=== PATIENT | female | born 1965 | race Caucasian/White ===

== ENCOUNTER 2017-11-14 11:49 | Inpatient (IN) ==
--- NOTE | 2017-11-14 12:07 | History & Physical Report ---
Date of Encounter: 11/14/17 Time of Encounter: 12:06 24 Hour HP Update - Instructions Instructions: If the History and Physical is less than 30 days old and was completed prior to A.M. admission and or procedure and has NOT been updated on calendar day of procedure please complete this update prior to performing procedure. - Update Patient reports changes in Medical Condition: No Changes in examination, assessment, or condition: No Changes in Medication: No Preop tests/diagnostics Reviewed: Yes Surgery Remains Indicated: Yes Consent for Planned Operative Procedure(s) Verified: Yes - Pre-Operative Checklist Preoperative Checklist Indicated: Yes Prophylactic Antibiotic Ordered: Yes Home Medications Include Beta Mukesh: No
[2017-11-14] MEDS ORDERED: cefOXitin 2,000 MG in Water for inj. (sterile) 20 ML 20 ML IVP ONE (12:14)
[2017-11-14] MEDS ORDERED: Ringers Solution, Lactated 1,000 ML IVC SCH (12:15)
[2017-11-14] MEDS ORDERED: Famotidine 20 MG/2 ML VIAL IVP ONE (12:20)
[2017-11-14] MEDS ORDERED: Scopolamine Patch 1.5 MG PATCH.TD72 TD ONE (12:20)
--- NOTE | 2017-11-14 12:24 | Anesthesia Evaluation PreOp ---
Date of Encounter: 11/14/17 Time of Encounter: 12:20 - Past History Planned Operation: Robotic Colon Resection Cardiac History: Hyperlipidemia Pulmonary History: Denies Any Significant HX ORTHOPHOTOGRAPHY TECHNICIAN History: Denies Any Significant HX Other Medical History: GERD, Other (Obese) Anesthesia History: No Prior Anesthetic Complications : No Test: Negative Alcohol Use: occasionally Drug use: none Medications and Allergies Lansoprazole [Prevacid] 30 mg PO BID 07/26/16 [History] Vitamin E Acetate [Vitamin E] 400 unit PO DAILY 10/24/16 [History] Tamoxifen Citrate 20 mg PO DAILY #90 tab 01/26/17 [Rx] Atorvastatin [Lipitor] 20 mg PO HS 10/15/17 [History] Meclizine [Antivert] 12.5 mg PO TID 10/15/17 [History] Venlafaxine HCl [Effexor Xr] 75 mg PO DAILY 10/15/17 [History] Amitriptyline HCl 75 mg PO HS #30 tablet 10/29/17 [Rx] 3 Allergy/AdvReac Type Severity Reaction Status Date / Time adhesive Allergy Rash Verified 06/18/17 13:41 - Meds/Allergy Pre-op Review Medications Reviewed: Yes Allergies Reviewed: Yes Beta Blockers on Current Med List: No Anesthesia Results - Labs Laboratory Tests 10/01/17 10/01/17 08:09 08:09 Hgb 13.1 Hct 40.2 Plt Count 294 Sodium 141 Potassium 4.1 BUN 11 Creatinine 1.05 Anesthesia Exam O2 Sat Height 1.63 m Height 1.63 m Weight 94.347 kg Weight 94.347 kg O2 Sat by Pulse Oximetry 95 Vital Signs Temp Pulse Resp BP Pulse Ox 98.2 F 98 18 115/71 95 11/14/17 12:07 11/14/17 12:07 11/14/17 12:07 11/14/17 12:07 11/14/17 12:07 Height: 5'4 Weight: 208 lbs NPO (# of Hours): MN Pain Scale: 0 - HEENT Pupil (Motor): Pupils equal, EOMI Mallampati: II Teeth: Normal Oral Opening: Greater than 3 - ORTHOPHOTOGRAPHY TECHNICIAN LOC: Oriented ORTHOPHOTOGRAPHY TECHNICIAN Motor: Normal RUE, Normal LUE, Normal RLE, Normal LLE, Normal Face ORTHOPHOTOGRAPHY TECHNICIAN Sensory: Normal: RUE, LUE, RLE, LLE, Face - Cardiac Rhythm: Regular Murmur: None JVD: No Carotid Bruit: No - Pulmonary Breath Sounds: bilateral Clear Respiratory Effort: Symmetrical Anesthesia Assess/Plan ASA Score: 2 Modified [place] Scale for Level of Consciousness: Cooperative, oriented, and tranquil Anesthetic Plan: General Monitoring Plan: Standard Monitors Recovery Plan: PACU (Discussed GA, possible TAP Block for rescue if open procedure, agrees to proceed)
[2017-11-14] MEDS ORDERED: *HR* Midazolam HCl 2 MG/2 ML VIAL ONE (15:02)
[2017-11-14] MEDS ORDERED: *HR* FentaNYL (PF) 100 MCG/2 ML VIAL ONE ×2 (15:02→15:03)
[2017-11-14] MEDS ORDERED: *HR* PHENYLEPHRINE 1,000 MCG/10 ML SYRINGE IVP ONE (15:02)
[2017-11-14] MEDS ORDERED: *HR* Propofol 200 MG/20 ML VIAL IVP ONE (15:02)
[2017-11-14] MEDS ORDERED: *HR* Succinylcholine 200 MG/10 ML VIAL IVP ONE (15:02)
[2017-11-14] MEDS ORDERED: *HR* Rocuronium Bromide 50 MG/5 ML VIAL ONE (15:02)
[2017-11-14] MEDS ORDERED: Lidocaine -MPF 2% 2 ML VIAL ONE (15:02)
[2017-11-14] MEDS ORDERED: Ondansetron 4 MG/2 ML VIAL IVP PRN ×2 (15:56→17:43)
[2017-11-14] MEDS ORDERED: *HR* HYDROmorphone 2 MG TABLET PO PRN (15:56)
[2017-11-14] MEDS ORDERED: *HR* Morphine 2 MG/ML SYRINGE IVP PRN (15:56)
[2017-11-14] MEDS ORDERED: *HR* OxyCODONE Immed Rel 5 MG TABLET PO PRN (15:56)
[2017-11-14] MEDS ORDERED: Neostigmine Methylsulfate 3 MG/3 ML SYRINGE ONE (16:12)
[2017-11-14] MEDS ORDERED: Ketorolac 30 MG/ML VIAL ONE (16:14)
--- NOTE | 2017-11-14 16:22 | Operative Note ---
Date of procedure: 11/14/17 Pre-op diagnosis: Unresectable hepatic flexure polyp Post-op diagnosis: same Procedure: Robotic right colon resection with stapled anastomosis Anesthesia: KANDICEA Surgeon: Jhonny Alarcon Was there an miller head assistant wet process present: Yes Shredded Filler Cutter Operator: Chasity Manuel Estimated blood loss (cc): 5 Specimen: Right colon resection Condition: stable Disposition: same day Procedure in Detail: After informed consent, the patient was taken the operating room placed in the supine position. After adequate sedation and anesthesia the abdomen was prepped and draped. [address] the umbilicus and a Verres needle was inserted into the abdomen. A pneumoperitoneum was created. 3 individual 8 mm cannulas were placed along with a 13 mm cannula. Once in place the E-Blinki XI robot was brought over the patient's right hip and positioned. The ports were connected the robot. Attention was replaced. Small bowel was swept to the left lateral position. The cecum and ileum were grasped and the vascular pedicle was identified. A window was created. The duodenum was readily identified and kept out of harm's way. The vascular pedicle was taken with a vessel sealer. The remainder of the colon was dissected free from the retroperitoneum. Once the transverse mesocolon had been divided to the level of the transverse colon it was stapled with a robotic stapler. The same was performed for the terminal ileum. Once that was completed the remainder of the lateral attachments were taken down with a vessel sealer. Colon was parked over the patient's right abdomen. The terminal ileum was then placed next to the transverse colon. 2 enterotomies were created and the colon and the small bowel and a 45 mm stapler was fired down both limbs. The common enterotomy was closed with 2-0 silk suture 2. Once completed the ports were removed and the pneumoperitoneum was evacuated. A small midline incision was made and the specimen was retrieved through a wound protection bag. Once finished the midline was closed with a looped PDS suture and the 13 mm cannula was closed with a 0 Vicryl. Melanie were placed in the skin.
--- NOTE | 2017-11-14 16:54 | Anesthesia Evaluation Post Op ---
Date of Encounter: 11/14/17 Time of Encounter: 17:00 - Vital Signs Vital Signs: Vital Signs/O2 Sat/Glucose, Most Current Temp Pulse Resp BP Pulse Ox 11/14/17 16:47 93 12 136/81 95 11/14/17 16:37 78 10 117/81 97 11/14/17 16:27 97.6 F 84 12 140/79 95 - Lungs Lungs: Clear Ascult./Percussion - Airway Airway: Non-obstructed - Cardiovascular Regular Rate - Mental Status Mental Status: Alert & Oriented, Answers Appropriately - Pain Pain Scale: 1 - Nausea Vomiting Nausea Vomiting: Not Present - Hydration Hydration: Ice chips - Discharge PostOp Status: Transfer Patient to floor
[2017-11-14] MEDS ORDERED: MORPHINE SUL Oral CONC 10 MG/0.5 ML ORAL.SYG PO PRN (17:43)
[2017-11-14] MEDS ORDERED: OXYCODONE Oral CONC 10 MG/0.5 ML ORAL.SYG SL PRN (17:43)
[2017-11-14] MEDS: OXYCODONE Oral CONC 10 MG/0.5 ML ORAL.SYG SL PRN (18:32)
[2017-11-14] MEDS: 0.9 % Sodium Chloride 1,000 ML IVC SCH (18:32)
[2017-11-14] MEDS: Acetaminophen IV 1,000 MG/100 ML INFUS..BTL IVPB SCH ×2 (19:06→23:44)
[2017-11-15] MEDS: Acetaminophen IV 1,000 MG/100 ML INFUS..BTL IVPB SCH ×2 (05:11→11:34)
[2017-11-15] MEDS: OXYCODONE Oral CONC 10 MG/0.5 ML ORAL.SYG SL PRN (05:19)
[2017-11-15] MEDS: 0.9 % Sodium Chloride 1,000 ML IVC SCH (05:19)
[2017-11-15] MEDS ORDERED: *HR* Heparin 5,000 UNIT/ML VIAL SQ SCH (06:00)
[2017-11-15 06:48] LABS: Basophils % 0.2 %; Eosinophils % 0.1 %; Hematocrit 34.1 % (35.3-44.9); Immature Granulocytes % 0.8 % (0-4); Lymphocytes # 0.6 K/mcL (0.6-4.6); Lymphocytes % 4.6 %; Mean Corpuscular Hemoglobin 30.1 pg (28.0-33.3); Mean Corpuscular Volume 88.3 fL (83.0-100.0); Mean Platelet Volume 8.5 fL (9.4-12.4); Monocytes # 0.5 K/mcL (0.0-1.3); Monocytes % 4.1 %; Neutrophils # 11.7 K/mcL (1.6-8.9); Platelet Count 241 K/mcL (140-400); Red Blood Count 3.86 M/mcL (3.82-4.97); Red Cell Distribution Width 12.7 % (11.5-14.5); Segmented Neutrophils % 90.2 %
[2017-11-15 06:49] LABS: Hemoglobin 11.6 g/dL (11.5-15.4)
[2017-11-15 07:04] LABS: BUN/Creatinine Ratio 10 (6-26); Blood Urea Nitrogen 7 mg/dL (6-20); Calcium 8.5 mg/dL (8.6-10.3); Carbon Dioxide 19 mEq/L (23-29); Chloride 108 mEq/L (98-107); Glucose 131 mg/dL (70-105); Osmolality,Calculated 282 (280-300); Potassium 4.1 mEq/L (3.5-5.1); Sodium 136 mEq/L (136-145); eGFR For African Americans > 60 (> 60); eGFR For Non-African Americans > 60 (> 60)
--- NOTE | 2017-11-15 07:22 | General Surgery Progress Note ---
Date of Encounter: 11/15/17 Time of Encounter: 07:21 - Assessment and Plan (1) S/P colon resection Current Visit: Yes Status: Acute POD#1 for unresectable polyp near hepatic flexure seen on recent colonoscopy -- (11/14/17); stapled anastomosis. Colonoscopy biopsy PTH: "tubulovillous adenoma, in pieces; negative for high- grade dysplasia." - Resection pathology pending - - - - - (2) Colon polyp Current Visit: Yes Status: Acute Qualifiers: Colon polyp type: unspecified Colon location: ascending Qualified Code(s) : D12.2 - Benign neoplasm of ascending colon Subjective Narrative: POD#1 s/p colon resection due to unresectable colonic polyp at hepatic flexure. Objective Vital Signs - Last 8 Hours Temp Pulse Resp BP Pulse Ox 11/15/17 05:11 98.1 F 81 15 143/81 97 11/14/17 23:45 98.1 F 102 15 151/91 97 Intake and Output 11/14/1718 11/15/17 15:59 23:59 07:59 Intake Total 100 / 100 1200 / 1200 Output Total 400 / 400 0 / 0 Balance -300 / -300 1200 / 1200 Intake: IV Fluids 100 / 100 1200 / 1200 0.9 % Sodium Chloride 1,000 ML 1000 / 1000 @ 75 mls/hr IVC .[id number] [facility] Rx #:[id number] Ofirmev 1,000 mg/100 ml 1,000 100 / 100 200 / 200 mg In 100 ml @ 400 mls/hr IVPB Q6H [facility] Rx#:[id number] Oral 0 / 0 Output: Urine 300 / 300 0 / 0 Estimated Blood Loss 100 / 100 Other: # Voids 2 # Bowel Movements 0 0 Weight 94.347 kg - Labs 11/15/17 06:40 11/15/17 06:40 Diabetes panel 11/15/17 Range/Units 06:40 Sodium 136 (136-145) mEq/L Potassium 4.1 (3.5-5.1) mEq/L Chloride 108 H (98-107) mEq/L Carbon Dioxide 19 L (23-29) mEq/L BUN 7 (6-20) mg/dL Creatinine 0.73 (0.60-1.20) mg/dL Glucose 131 H (70-105) mg/dL Calcium 8.5 L (8.6-10.3) mg/dL Calcium panel 11/15/17 Range/Units 06:40 Calcium 8.5 L (8.6-10.3) mg/dL Pituitary panel 11/15/17 Range/Units 06:40 Sodium 136 (136-145) mEq/L Potassium 4.1 (3.5-5.1) mEq/L Chloride 108 H (98-107) mEq/L Carbon Dioxide 19 L (23-29) mEq/L BUN 7 (6-20) mg/dL Creatinine 0.73 (0.60-1.20) mg/dL Glucose 131 H (70-105) mg/dL Calcium 8.5 L (8.6-10.3) mg/dL Adrenal panel 11/15/17 Range/Units 06:40 Sodium 136 (136-145) mEq/L Potassium 4.1 (3.5-5.1) mEq/L Chloride 108 H (98-107) mEq/L Carbon Dioxide 19 L (23-29) mEq/L BUN 7 (6-20) mg/dL Creatinine 0.73 (0.60-1.20) mg/dL Glucose 131 H (70-105) mg/dL Calcium 8.5 L (8.6-10.3) mg/dL - VTE Documentation of Mechanical Device: Intermittent pneumatic compression device Consult Discharge Plan - Plan Referrals: Jhonny Alarcon DO [Partnered Physician] - 11/27/17 4:05 pm
[2017-11-15] MEDS ORDERED: Venlafaxine XR (24 HR) 75 MG CAP.ER.24H PO SCH (09:00)
[2017-11-15 10:24] VITALS: BP 134/85
--- NOTE | 2017-11-15 12:57 | Discharge Summary ---
Orders not resulted at time of discharge: Pending orders 11/14/17 16:30 Surgical Pathology [PTH] Routine Date of Encounter: 11/15/17 Time of Encounter: 09:30 - Discharge Diagnosis (1) S/P colon resection Priority: Primary Status: Acute Comments: Pathology report pending (2) Colon polyp Priority: Primary Status: Acute Qualifiers: Colon polyp type: unspecified Colon location: ascending Qualified Code(s) : D12.2 - Benign neoplasm of ascending colon General Surgery Exam Initial Vital Signs Temp Pulse Resp BP Pulse Ox 98.2 F 98 18 115/71 95 11/14/17 12:07 11/14/17 12:07 11/14/17 12:07 11/14/17 12:07 11/14/17 12:07 VITAL SIGNS: Reviewed. See [facility] GENERAL: alert and comfortably supine. No acute distress. Answers questions appropriately. Seen ambulating in halls without any apprehension. HEENT: [Normocephalic, PER, EOMi, oropharynx pink/moist, no JVD noted.] CV: b/l rad pulses 2+, RRR, no murmurs or gallops, no JVD RESPIRATORY: CTAB without wheezes, rales, or rhonchi ABD: soft, non-tender, no rebound/guarding/rigidity, no peritoneal signs INCISION: clean, dry, intact without purulence/bleeding/edema/rubor/calor EXTREMITY: grossly normal motor function, no pedal edema, peripheral pulses 2+ b /l NEUROLOGIC EXAM: AOx3, obeys commands, no speech deficits. PSYCHIATRIC: normal mood and affect SKIN: no gross lesions, rashes, or skin changes - Hospital Course Hospital course: Ms. Iqbal is a 51 year old female admitted for elective resection of segment of right hemicolon near hepatic flexure. Had colonoscopy on 11/08/2017 with a polyp near the same area that was too large to resect. Small biopsy taken and reported as "tubulovillous adenoma, in pieces; negative for high-grade dysplasia." Postop day one status post partial right segmental colectomy with stapled anastomosis; segment bowel syndrome for pathology, report pending. Expected postop pain. Benign exam; operative incision sites without signs of infection. Patient tolerating soft diet. Ambulating in halls with no difficulty. Afebrile overnight. No acute complaints. Patient anxious for discharge home and appears to be a reasonable candidate for this plan of action. Aftercare instructions, follow-up appointment, and return precautions discussed with patient. Discharge with appropriate medications and all instructions in written form. - Time Spent with Patient Total time spent providing and/or coordinating discharge services: - Discharge Medications Prescriptions: Ondansetron ODT [Zofran ODT] 4 mg SL Q6HR PRN #15 tab.rapdis PRN Reason: Nausea And Vomiting Docusate [Colace] 100 mg PO BID #30 capsule Ibuprofen 800 mg PO Q8H PRN #42 tablet PRN Reason: Mild Pain Oxycodone HCl/Acetaminophen [Percocet 5-325 mg Tablet] 1 each PO Q6H PRN 7 Days #28 tablet PRN Reason: Severe Pain Home Medications: Lansoprazole [Prevacid] 30 mg PO BID 07/26/16 [History] Vitamin E Acetate [Vitamin E] 400 unit PO DAILY 10/24/16 [History] Tamoxifen Citrate 20 mg PO DAILY #90 tab 01/26/17 [Rx] Atorvastatin [Lipitor] 20 mg PO DAILY 10/15/17 [History] Venlafaxine HCl [Effexor Xr] 75 mg PO DAILY 10/15/17 [History] Amitriptyline HCl 75 mg PO HS #30 tablet 10/29/17 [Rx] Erythromycin [Johann-Tab] 250 mg PO AD 11/14/17 [History] Neomycin Sulfate 500 mg PO AD 11/14/17 [History] Docusate [Colace] 100 mg PO BID #30 capsule 11/15/17 [Rx] Ibuprofen 800 mg PO Q8H PRN #42 tablet 11/15/17 [Rx] Ondansetron ODT [Zofran ODT] 4 mg SL Q6HR PRN #15 tab.rapdis 11/15/17 [Rx] Oxycodone HCl/Acetaminophen [Percocet 5-325 mg Tablet] 1 each PO Q6H PRN 7 Days #28 tablet 11/15/17 [Rx] Allergies/Adverse Reactions: 3 Allergy/AdvReac Type Severity Reaction Status Date / Time adhesive Allergy Rash Verified 06/18/17 13:41 Date of admission: 11/14/17 17:16 Primary care physician: Zhao Siddiqui, Discharging clinician: Syed Drake Anticipated date of discharge: 11/15/17 Labs on day of discharge: Labs from last 24 hours 11/15/17 11/15/17 11/15/17 06:40 06:40 05:25 WBC 13.0 H RBC 3.86 Hgb 11.6 Hct 34.1 L MCV 88.3 MCH 30.1 MCHC 34.0 RDW 12.7 Plt Count 241 MPV 8.5 L Immature Gran % 0.8 Seg Neutrophils % 90.2 Lymphocytes % 4.6 Monocytes % 4.1 Eosinophils % 0.1 Basophils % 0.2 Neutrophils # 11.7 H Lymphocytes # 0.6 Monocytes # 0.5 Eosinophils # 0.0 Basophils # 0.0 Sodium 136 Potassium 4.1 Chloride 108 H Carbon Dioxide 19 L BUN 7 Creatinine 0.73 Est GFR ( Amer) > 60 Est GFR (Non-Af Amer) > 60 BUN/Creatinine Ratio 10 Glucose 131 H Calculated Osmolality 282 Calcium 8.5 L Specimen Rejected Contaminated - Patient Status Disposition: Home, Self-Care Condition: Good Functional capacity at discharge: independent ambulation Overall status at discharge: patient is progressing back to baseline - Discharge Instructions Instructions: Colectomy (DC) Follow Up With: Jhonny Alarcon DO [Partnered Physician] - 11/27/17 4:05 pm Additional Instructions: Please review all discharge educational handouts. Please attend scheduled follow-up appointments; appointment dates and times will be provided for you. You are prescribed medication for pain, nausea, and constipation to be used if/ as needed; take as written. Avoid driving if your pain requires that you take opioid analgesics such as oxycodone. Call 's office if you have fever/chills/sweats/body aches, nausea, vomiting, constipation not relieved with meds you have been prescribed, significant abdominal pain after eating, blood in your stools or blackened stools, or signs of infection at your incision sites (includes increasing redness, increasing warmth, swelling, or pus). Avoid heavy lifting over 15lbs at least until you're reevaluated in the surgical clinic. Wound Care: shower with antibacterial soap; gently wash or allow water to passively run over surgical sites, avoid firm scrubbing of incisional site. May leave incisions open to air or cover with a dry dressing for comfort. Tape to secure. Reinforce or change outer dressing as needed. Call your PCP for other concerns if any arise. - Diet and Activity Activity: increase activity as tolerated (please observe 15 lb weight restriction) Diet: advance to your usual diet
== END 2017-11-15 14:03 | disposition home or self-care (01) | DRG 331 ==
LOC: SAMDAY 11:49 → 3ANU 17:15
PROVIDERS: ADMIT Surgery; ATTEND Surgery